=== PATIENT | female | born 1980 | race Caucasian/White ===

== ENCOUNTER 2023-11-25 13:53 | Emergency (ER) | payer BC, SELFPAY ==
[2023-11-25 13:56] VITALS: BP 168/100
[2023-11-25 14:12] VITALS: BP 145/90
[2023-11-25 15:00] VITALS: BP 142/88
[2023-11-25 15:06] LABS: % Basophils 0.5 % (0-2); % Eosinophils 0.8 % (0-6); % Immature Granulocytes 0.4 % (0-0.5); % Lymphocytes 25.2 % (20.5-51.1); % Monocytes 8.8 % (1.7-9.3); % Neutrophils 64.3 % (42.2-75.2); Absolute Eosinophils 0.1 10^3/uL (0-0.7); Absolute Lymphocytes 1.9 10^3/uL (1.2-3.4); Absolute Monocytes 0.7 10^3/uL (0.1-0.6); Absolute Neutrophils 4.9 10^3/uL (1.4-6.5); Hematocrit 39.7 % (37.0-47.0); Hemoglobin 13.4 g/dL (12.0-16.0); Mean Corp Hgb Conc. 33.8 g/dL (33.0-37.0); Mean Corpuscular Hgb 29.8 pg (27.0-31.0); Mean Corpuscular Volume 88.2 fL (81.0-99.0); Mean Platelet Volume 9.9 fL (7.4-10.4); Nucleated Red Blood Cells % 0 %; Platelet Count 348 10^3/uL (130-400); Red Cell Dist. Width 13.2 % (11.5-14.5); White Blood Cell Count 7.7 10^3/uL (4.8-10.8)
[2023-11-25 15:21] LABS: ALT (SGPT) 19 U/L (0-35); AST (SGOT) 27 U/L (14-36); Albumin 4.7 g/dl (3.5-5.0); Alkaline Phosphatase 74 U/L (38-126); Blood Urea Nitrogen 17 mg/dl (7-17); Calcium 10.3 mg/dl (8.4-10.2); Carbon Dioxide 23 mmol/L (22-30); Chloride 107 mmol/L (98-107); Glucose 108 mg/dl (70-99); Potassium 4.2 mmol/L (3.5-5.1); Sodium 138 mmol/L (135-145); Total Bilirubin 0.5 mg/dl (0.2-1.3); Total Protein 7.7 g/dl (6.3-8.2); eGFR > 60.00
[2023-11-25 15:26] LABS: Troponin I < 0.012 ng/ml
[2023-11-25 16:53] LABS: TSH Reflex To Free T4 2.81 uIU/ml (0.47-4.68)
--- NOTE | 2023-11-25 21:23 | ED.GENMED ---
History of Present Illness
General
Chief Complaint: Chest Pain
Source: patient
Exam Limitations: none
Time Seen by Provider: 11/25/23 14:34
Nursing documentation reviewed up to this point in time: agreed with
Travel History
Have you had any contact with someone who has COVID-19?: No
Do you have any symptoms of coronavirus? Fever > 100 degrees, chills, cough, shortness of breath, sore throat, loss of taste or smell, muscle aches, or headache?: No
History of Present Illness
History of Present Illness:
43-year-old female with no significant chronic medical issues presents to the emergency room for evaluation of chest pain, palpitations and generalized malaise. Patient reports symptoms have been ongoing for the past week or so. She reports vague
pain in the left lower chest she reports very low intensity. She says that she noticed that she has had palpitations and elevated heart rate. She says that she believes the symptoms may related to increased anxiety and she will have episodes where
she feels 'just not right.' And it makes her very anxious. She saw her primary doctor in the office and was referred to the emergency room to be assessed. She denies any GI issues. Denies any fevers or chills. No significant coughing. She
denies any other complaints today. Denies any known cardiac history.
Review of Systems
Review of Systems
All Other Systems: ROS reviewed and negative except as documented in HPI and ROS
Constitutional: Reports fatigue and other (Malaise); Denies fever or chills
EENT: Denies sore throat or runny nose
Respiratory: Denies cough or trouble breathing
Cardiac: Reports chest pain and palpitations
ABD/GI: Denies abdominal pain, nausea, vomiting or diarrhea
: Denies flank pain
Musculoskeletal: Denies neck pain or back pain
Neurological: Denies dizzy or headache
Phy Exam
Physical Exam
Physical Exam:
General: Awake, alert, oriented x3; somewhat anxious but no acute distress
Head: Normocephalic, atraumatic
Eyes: Conjunctiva normal, EOMI
Throat: Airway intact, handling secretions
Neck: Trachea midline, supple without meningismus
Lungs: Clear to auscultation bilaterally, no wheezing, rales, rhonchi
Heart: Regular rate and rhythm, no murmurs, gallops, or rubs
Abd: Soft, non distended, nontender
Neuro: Cranial nerves grossly intact, speech fluid
Skin: no rash
Extremities: No edema in extremities, equal pulses in all extremities
Scores
Heart Failure Risk
Heart Failure Risk Score: Not Applicable
Heart Score for Chest Pain Patients
STEMI patient?: No
History: Slightly or Non-Suspicious
ECG: Normal
Age: </= 45 years
Risk Factors: No Risk Factors
Troponin: </= Normal Limit
Heart Score for Chest Pain Patients: 0
Heart Score Risk: 2.5% MACE over next 6 weeks
Withdrawal Assessment of Alcohol
Withdrawal Assessment Completed?: Not applicable
Course
Orders/Labs/Results
Orders:
Orders
11/25/23 13:55
Electrocardiogram (*1) Urgent
Reason for Study: Chest Pain
EKG- Treatment ONCE
11/25/23 14:36
CR Chest - 2 Views Urgent
Comment:
Reason For Exam: cp
11/25/23 14:48
Complete Blood Count/With Diff Urgent
Comprehensive Metabolic Panel Urgent
D-Dimer Urgent
TSH Reflex To Free T4 Urgent
Comment: ADD ON
Troponin I Urgent
11/25/23 15:18
Add On- LAB Urgent
Tests Added?: tsh reflex to t4
Abnormal Lab Results
11/25/23
14:48
Absolute Monos (auto) 0.7 H 10^3/uL
(0.1-0.6)
Glucose 108 H mg/dl
(70-99)
Calcium 10.3 H mg/dl
(8.4-10.2)
11/25/23 14:48
11/25/23 14:48
Vital Signs
Initial and Last Documented VS:
Initial Vital Signs
Temp Pulse Resp BP Pulse Ox
37.1 C 86 20 168/100 100
11/25/23 13:56 11/25/23 13:56 11/25/23 13:56 11/25/23 13:56 11/25/23 13:56
Last Documented Vital Signs
Temp Pulse Resp BP Pulse Ox
37.1 C 85 16 142/88 96
11/25/23 13:56 11/25/23 15:15 11/25/23 15:15 11/25/23 15:00 11/25/23 15:15
MDM/Problems Addressed
Differential Diagnosis Includes:
Pericarditis, costochondritis, GERD, ACS, dysrhythmia, PE, anxiety, pneumothorax
MDM/Problems Addressed:
43-year-old female presents for evaluation of consistent mild chest pain, palpitations, intermittent episodes of malaise/'not feeling right.' She was hypertensive on arrival normalized by my assessment. Physical exam as above. EKG shows sinus
rhythm no concerning changes. Plan to place an IV check labs including CBC and CMP, D-dimer, troponin. Check thyroid studies. Check a chest x-ray. Monitor on telemetry. Reassess after the above.
Labs reviewed: CBC unremarkable, CMP no clinically significant abnormalities. Troponin undetectable x 1 and with consistent symptoms for weakness suspicion to rule out acute AR. Her thyroid studies are normal. Her chest x-ray reviewed by me shows
no acute disease. Clinical reassessment patient well-appearing reassuring vitals. No events on monitoring in the emergency room. Stable for discharge will refer to cardiology for outpatient evaluation including potential Holter monitoring. She
will follow-up with her primary doctor as well regarding blood pressure. Spoke about return precautions all questions answered.
Acute Exacerbation and/or Progression of Chronic Illness:
Acutely hypertensive resolved without intervention continue to monitor but no additional intervention indicated at present
Acute Exacerbation and/or Progression of Chronic Illness: HTN
*Radiology
Radiology exam reviewed: preliminary read by ED provider and radiology read reviewed
*Pulse Oximetry
Patient hypoxic: no
*EKG
Interpreted by ED Provider?: Yes
Heart Rate: 92
Rate: normal
Rhythm: sinus
[place]: normal axis
Interval: normal interval
QRS Pattern: right bundle branch block (Incomplete)
Ischemia: no ischemia
*Critical Care Note
Total Time (30-74mins, 75-104mins- exclusive of procedures): Not Applicable
Data Reviewed
Source: patient and spouse
ED Attending Note
-
Portions of this chart may have been created with voice recognition software.� Occasional wrong word or��sound alike� substitutions may have occurred due to the inherent limitations of voice recognition software.
Discharge Plan
Departure
Patient Disposition: Home (Routine Discharge)
Date of Disposition: 11/25/23
Time of Disposition: 17:24
Patient with high blood pressure during this ER visit?: Yes
Discharge Problem:
Palpitations, Chest discomfort, Malaise
Instructions: Chest Pain DCA Follow Up, Heart Palpitations
Referrals:
Nav Prater MD [Active] - Call in 1-3 days for appt
Taisha Brandon MD [Family Provider] -
Activity Restrictions/Additional Instructions:
Thank you for visiting the Emergency Department at [facility].
1. Please schedule a follow up appointment as directed. Call first thing tomorrow morning to make an appointment.
2. If indicated, please take your medications as instructed and indicated on discharge paperwork.
3. If any of your symptoms do not improve, or persist, or become more severe within 6-12 hours, please return to the emergency department for further care.
4. Please return to the emergency department if you develop a headache, neck pain/stiffness, fever greater than 100.4F, chest pain, shortness of breath, persistent nausea, vomiting, slurred speech, difficulty walking, numbness/tingling, weakness,
signs of infection or any other symptoms that are worrisome to you.
Please call [phone] if you have any questions.
Interventions
Interventions:
*Risk Screen - Suicide Last Done: 11/25/23 17:37
*General Assessment Last Done: 11/25/23 17:37
*Neglect/Abuse Screening Last Done: 11/25/23 17:20
ED- Fall Risk Assessment Last Done: 11/25/23 17:37
*ED COVID-19 Vaccine History Last Done: 11/25/23 17:37
*Nursing Disposition Last Done: 11/25/23 17:37
ED- Cardiac Assessment Last Done: 11/25/23 17:00
Discharge Date and Time
Discharge Date/Time: 11/25/23 17:38
Print Language: FAROESE
== END 2023-11-25 17:38 | disposition home or self-care (01) ==
LOC: EMR 13:53
PROVIDERS: EMERGENCY PHYSICIAN Emergency Medicine; FAMILY PHYSICIAN Family Medicine
DX: R00.2 Palpitations (principal); R53.81 Other malaise; R07.9 Chest pain, unspecified; I10 Essential (primary) hypertension
CPT/HCPCS: 99285; 71046; 80053; 84443; 84484; 85025; 85379; 93005

== ENCOUNTER → 2024-01-01 10:40 | Outpatient (REF) | payer BC, SELFPAY | LOC: RCS 10:40 | PROVIDERS: ATTENDING PHYSICIAN Internal Medicine Cardiovascular Disease; FAMILY PHYSICIAN Family Medicine | DX: R07.89 Other chest pain (principal); R00.2 Palpitations | CPT/HCPCS: 93017 ==

== ENCOUNTER → 2024-01-20 10:05 | Outpatient (REF) | payer BC, SELFPAY | LOC: RCS 10:05 | PROVIDERS: ATTENDING PHYSICIAN Internal Medicine Cardiovascular Disease; FAMILY PHYSICIAN Family Medicine | DX: R07.89 Other chest pain (principal); R00.2 Palpitations; R01.1 Cardiac murmur, unspecified | CPT/HCPCS: 93306 ==

== ENCOUNTER 2024-06-24 08:01 | Emergency (ER) | payer BC, SELFPAY ==
[2024-06-24] VITALS (7 sets, daily range): BP systolic 114–146; BP diastolic 72–99
--- NOTE | 2024-06-24 09:02 | ED.GENMED ---
History of Present Illness
General
Chief Complaint: Chest Problem
Source: patient
Exam Limitations: none
Time Seen by Provider: 06/24/24 08:51
History of Present Illness
History of Present Illness:
Patient woke at 3:30 AM with heart racing some palpitations and skipped beats and some ongoing chest pressure. Has persisted throughout the morning. Moderately improved. History of same in the past. Did drink a bottle of wine last evening.
History of anxiety. Started Prozac 2 weeks ago. Has seen cardiology in the past with a normal stress test echo and Holter monitor.
Past History
Past History
ED Past Medical History: Cancer (Cervical) and Psychiatric (Anxiety)
ED Past Surgical History: Gynecological
Review of Systems
Review of Systems
All Other Systems: Not applicable
Constitutional: Denies fever or chills
Respiratory: Denies cough
ABD/GI: Reports nausea; Denies abdominal pain or vomiting
Phy Exam
Physical Exam
Physical Exam:
GENERAL: Alert and oriented in no apparent distress
EYE: Orbits normal.
NECK: Supple, no thyroid palpable
ENT: Pharynx without erythema
CARDIAC: Regular rate and rhythm without any obvious murmurs.
LUNGS: Clear breath sounds,normal
ABDOMEN: Soft, without focal tenderness or distention
NEUROLOGICAL: Alert and oriented , grossly non-focal
SKIN: Warm and dry, no rash or lesion, no discoloration, skin intact.
MUSCULOSKELETAL: No edema,no deformity.Good color
PSYCH: Normal and appropriate interaction.
Course
Orders/Labs/Results
Orders:
Orders
06/24/24 08:24
Electrocardiogram (*1) Urgent
Reason for Study: Chest Pain
EKG- Treatment ONCE
06/24/24 09:01
Cardiac Monitoring- Treatment ONCE
IV Insert/Care/Rem.- Treatment PRN
0.9% Sodium Chloride 500 ml [Nss] 500 ml IV BOLUS
Pulse Ox/cont/shift [RESP] Stat
Quantity: 1
06/24/24 09:02
Test Result ONCE
06/24/24 09:11
Basic Metabolic Panel Urgent
Complete Blood Count/With Diff Urgent
D-Dimer Urgent
HCG, Serum Qualitative Screen Urgent
TSH Reflex To Free T4 Urgent
Troponin I Urgent
Abnormal Lab Results
06/24/24
09:11
Absolute Neuts (auto) 7.5 H 10^3/uL
(1.4-6.5)
Absolute Lymphs (auto) 0.9 L 10^3/uL
(1.2-3.4)
Neutrophils % 84.4 H %
(42.2-75.2)
Lymphocytes % 10.6 L %
(20.5-51.1)
Glucose 114 H mg/dl
(70-99)
06/24/24 09:11
06/24/24 09:11
Vital Signs
Initial and Last Documented VS:
Initial Vital Signs
Temp Pulse Resp BP Pulse Ox
98.2 F 100 18 146/99 100
06/24/24 08:14 06/24/24 08:14 06/24/24 08:14 06/24/24 08:14 06/24/24 08:14
Last Documented Vital Signs
Temp Pulse Resp BP Pulse Ox
98.3 F 80 14 118/72 96
06/24/24 08:29 06/24/24 11:15 06/24/24 11:15 06/24/24 11:00 06/24/24 11:15
MDM/Problems Addressed
Differential Diagnosis Includes:
Low suspicion for serious etiology. Patient currently has some symptoms with a normal sinus rhythm. Will check thyroid D-dimer troponin more for myocarditis although unlikely. Check for anemia with history of irregular menses. Observation on a
monitor. If all stable discharged to follow-up
*Pulse Oximetry
Patient hypoxic: no
*EKG
Interpreted by ED Provider?: Yes
Interpretation: normal
Comparison EKG: no changes
Heart Rate: 83
Rate: normal
Rhythm: sinus
[place]: normal axis
QRS Pattern: normal QRS
Ischemia: no ischemia
*Emergency Department Physician Interpretation
Rate: normal
Interpretation: normal
Heart Rate: 92
Rhythm: sinus
*Critical Care Note
Total Time (30-74mins, 75-104mins- exclusive of procedures): Not Applicable
Data Reviewed
Review of Other/Old Records Reveals: Labs and Testing (Low risk stress test. Essentially normal echocardiogram both December 2023)
Update Note
Update Note:
Patient is remained stable. Workup unremarkable. Discharged to follow-up.
ED Attending Note
-
Portions of this chart may have been created with voice recognition software.� Occasional wrong word or��sound alike� substitutions may have occurred due to the inherent limitations of voice recognition software.
Discharge Plan
Departure
Patient Disposition: Home (Routine Discharge)
Date of Disposition: 06/24/24
Time of Disposition: 11:53
Patient with high blood pressure during this ER visit?: No
Discharge Problem:
Palpitations/chest pressure
Instructions: Chest Pain (DC), Palpitations ED
Referrals:
Taisha Brandon MD [Family Provider] - Follow up in 2-3 days
Activity Restrictions/Additional Instructions:
Also call your photograph enlarger for close follow-up
Interventions
Interventions:
*Risk Screen - Suicide Last Done: 06/24/24 08:29
*Neglect/Abuse Screening Last Done: 06/24/24 08:29
ED- Fall Risk Assessment Last Done: 06/24/24 09:01
ED- Cardiac Assessment Last Done: 06/24/24 09:01
ED- Pulmonary Assessment Last Done: 06/24/24 09:01
Discharge Date and Time
Print Language: [id number]
[2024-06-24 09:47] LABS: HCG, Serum Qualitative Screen Negative
[2024-06-24 09:55] LABS: Blood Urea Nitrogen 14 mg/dl (7-17); Calcium 9.7 mg/dl (8.4-10.2); Carbon Dioxide 27 mmol/L (22-30); Chloride 102 mmol/L (98-107); Glucose 114 mg/dl (70-99); Potassium 4.6 mmol/L (3.5-5.1); Sodium 138 mmol/L (135-145); eGFR > 60.00
[2024-06-24 10:02] LABS: Troponin I < 0.012 ng/ml
[2024-06-24 10:21] LABS: TSH Reflex To Free T4 1.94 uIU/ml (0.47-4.68)
[2024-06-24 10:42] LABS: D-Dimer 0.28 ug/mlFEU (0.00-0.50)
[2024-06-24] MEDS: NSS 500 IV (10:47)
[2024-06-24 10:57] LABS: % Basophils 0.5 % (0-2); % Eosinophils 0.1 % (0-6); % Immature Granulocytes 0.5 % (0-0.5); % Lymphocytes 10.6 % (20.5-51.1); % Monocytes 3.9 % (1.7-9.3); % Neutrophils 84.4 % (42.2-75.2); Absolute Lymphocytes 0.9 10^3/uL (1.2-3.4); Absolute Monocytes 0.4 10^3/uL (0.1-0.6); Absolute Neutrophils 7.5 10^3/uL (1.4-6.5); Hematocrit 40.6 % (37.0-47.0); Hemoglobin 13.4 g/dL (12.0-16.0); Mean Corpuscular Hgb 27.9 pg (27.0-31.0); Mean Corpuscular Volume 84.6 fL (81.0-99.0); Mean Platelet Volume 9.9 fL (7.4-10.4); Nucleated Red Blood Cells % 0 %; Platelet Count 322 10^3/uL (130-400); Red Cell Dist. Width 13.2 % (11.5-14.5); White Blood Cell Count 8.9 10^3/uL (4.8-10.8)
== END 2024-06-24 12:00 | disposition home or self-care (01) ==
LOC: EMR 08:01
PROVIDERS: EMERGENCY PHYSICIAN Emergency Medicine; FAMILY PHYSICIAN Family Medicine
DX: R00.2 Palpitations (principal); R07.89 Other chest pain; F41.9 Anxiety disorder, unspecified
CPT/HCPCS: 99284; 80048; 84443; 84484; 84703; 85025; 85379; 93005

== ENCOUNTER → 2024-08-09 08:52 | Outpatient (REF) | payer BC, SELFPAY | LOC: HWWDC 08:52 | PROVIDERS: ATTENDING PHYSICIAN Nurse Practitioner Family; FAMILY PHYSICIAN Family Medicine | DX: Z12.31 Encounter for screening mammogram for malignant neoplasm of breast (principal) | CPT/HCPCS: 77063; 77067 ==

== ENCOUNTER → 2024-08-13 10:14 | Outpatient (REF) | payer BC, SELFPAY | LOC: WDC 10:14 | PROVIDERS: ATTENDING PHYSICIAN Nurse Practitioner Family | DX: R92.8 Other abnormal and inconclusive findings on diagnostic imaging of breast (principal) | CPT/HCPCS: 76642 ==